=== PATIENT | male | born 1975 | race Caucasian/White ===

== ENCOUNTER 2016-07-24 11:52 | Emergency (ER) | payer MEDICAID, OTHER ==
[~2016-07-24] VITALS: Ht 167.6 cm; Wt 70.0 kg
[~2016-07-24 11:52] MED LIST: CIPR-9 PO; PHEN0.4T PO
[2016-07-24 11:59] VITALS: BP 143/77; PULSE 84; RESP 16; TEMP 97.9; O2SAT 99
[2016-07-24] MEDS ORDERED: CYCL1TAB29 PO (12:10)
--- NOTE | 2016-07-24 12:12 | PD ---
HPI Chief Complaint: Chest Pain Time Seen by Provider: 12:07 Travel History International Travel<30 days: No Contact w/Intl Traveler<30days: No Traveled to known affect area: No History of Present Illness HPI Patient presents with right pectoral pain for one week. Constant in nature. Denies any diaphoresis or shortness of breath. Denies any radiation to left arm or neck. Denies diabetes. Stopped smoking 5 years ago. No family history of cardiac disease, no personal history of hypertension hyperlipidemia or cardiac disease. He is active. Pain is aggravated with adduction of the right arm. PFSH Past Medical History Medical History: Denies Significant Hx Diminished Hearing: No Tetanus Vaccination: < 5 Years Influenza Vaccination: No Past Surgical History Surgical History: No Previous Surgery Social History Alcohol Use: No (DENIES) Tobacco Use: No (Quit 5 years ago ) Substance Use: No Allergies-Medications (Allergen,Severity, Reaction): Coded Allergies: No Known Allergies (Verified , 07/24/16) Reported Meds & Prescriptions Reported Meds & Active Scripts Active No Active Prescriptions or Reported Medications Review of Systems General / Constitutional: No: Fever Eyes: No: Visual changes HENT: No: Headaches Cardiovascular: No: Chest Pain or Discomfort Respiratory: No: Shortness of Breath Gastrointestinal: No: Abdominal Pain Genitourinary: No: Dysuria Musculoskeletal: Positive: Pain Skin: No Rash Neurologic: No: Weakness Psychiatric: No: Depression Endocrine: No: Polydipsia Hematologic/Lymphatic: No: Easy Bruising Physical Exam Narrative GENERAL: Well-nourished, well-developed patient. SKIN: Focused skin assessment warm/dry. HEAD: Normocephalic. EYES: No scleral icterus. No injection or drainage. NECK: Supple, trachea midline. No JVD or lymphadenopathy. CARDIOVASCULAR: Regular rate and rhythm without murmurs, gallops, or rubs. RESPIRATORY: Breath sounds equal bilaterally. No accessory muscle use. GASTROINTESTINAL: Abdomen soft, non-tender, nondistended. MUSCULOSKELETAL: No cyanosis, or edema. BACK: Nontender without obvious deformity. No CVA tenderness. Pain is reproducible with palpation of the right pectoral muscle and adduction of the right arm Data Data Last Documented VS Vital Signs Date Time Temp Pulse Resp B/P Pulse Ox O2 Delivery O2 Flow Rate FiO2 07/24/16 12:01 99 Room Air 07/24/16 11:59 97.9 84 16 143/77 [facility] Medical Decision Making Medical Screen Exam Complete: Yes Emergency Medical Condition: Yes Differential Diagnosis Right pectoral strain, costochondritis, right pectoral contusion Narrative Course Assessment and plan discussed with patient at bedside. EKG normal sinus rhythm. 40-year-old young active male with minimal risk factors for heart disease. Do not feel a cardiac workup is necessary since this pain is been present for one week and is reproducible with palpation of the right pectoral muscle and adduction of the right arm. Encouraged the patient to follow-up with his PCP for further workup and evaluation for cardiac risk. Diagnosis Primary Impression: Strain of right pectoralis muscle Qualified Code: S29.011A - Strain of right pectoralis muscle, initial encounter Patient Instructions: General Instructions Additional Instructions: Encourage nonsteroidal anti-inflammatories and ice in the evenings. Follow-up with PCP for any further symptoms. Med/Other Pt SpecificInfo: Prescription(s) given Scripts Cyclobenzaprine (Flexeril)10 Mg Tab10 Mg PO TID #20 TAB Ref 0 Prov:Daryn Rodriguez MD 07/24/16 Disposition: 01 DISCHARGE HOME Condition: Good Daryn Rodriguez MD July 24, 2016 12:12
--- NOTE | 2016-07-24 21:51 | EKG ---
Date Performed: 07/24/2016 Time Performed: 11:52:00 PTAGE: 40 years EKG: Sinus rhythm . Normal ECG NO PREVIOUS TRACING DOCTOR: Javan Cruz Interpretating Date/Time 07/24/2016 21:47:47
== END 2016-07-24 12:21 | disposition home or self-care (01) ==
LOC: PHED 11:52
DX: S29.011A Strain of muscle and tendon of front wall of thorax, initial encounter (principal); X58.XXXA Exposure to other specified factors, initial encounter
CPT/HCPCS: 93005; 99283